=== PATIENT | female | born 1975 | race Caucasian/White ===

== ENCOUNTER 2017-09-16 12:38 | Emergency (ER) | payer OTHER ==
[2017-09-16] MEDS ORDERED: RX INFO: IV CONTRAST WAS GIVEN 1 EACH MISC MISCELLANE PRN (13:04)
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
[2017-09-16] MEDS: ONDANSETRON 4 MG/2 ML VIAL IVP STA ×2 (13:56→16:42)
[2017-09-16 14:06] LABS: Basophils # (A) 0.1 k/uL (0-0.2); Basophils % (A) 1 %; Eosinophils # (A) 0.2 k/uL (0-0.7); Eosinophils % (A) 2 %; HCT 42.1 % (34.0-46.0); HGB 14.3 gm/dL (11.4-16.0); Lymphocytes # (A) 1.9 k/uL (1.0-4.8); Lymphocytes % (A) 14 %; MCH 31.1 pg (25.0-35.0); MCHC 33.9 g/dL (31.0-37.0); MCV 91.8 fL (80.0-100.0); Monocytes # (A) 0.5 k/uL (0-1.0); Monocytes % (A) 3 %; Neutrophils # (A) 11.3 k/uL (1.3-7.7); Neutrophils % (A) 81 %; Platelet Count 372 k/uL (150-450); RBC 4.59 m/uL (3.80-5.40); RDW 12.7 % (11.5-15.5); WBC 14.1 k/uL (3.8-10.6)
[2017-09-16 14:16] LABS: ALT 31 U/L (9-52); AST 23 U/L (14-36); Albumin 3.9 g/dL (3.5-5.0); Alkaline Phosphatase 100 U/L (38-126); Anion Gap 12 mmol/L; Blood Urea Nitrogen 8 mg/dL (7-17); Calcium 9.4 mg/dL (8.4-10.2); Carbon Dioxide 24 mmol/L (22-30); Chloride 101 mmol/L (98-107); Glucose 126 mg/dL (74-99); Potassium 3.8 mmol/L (3.5-5.1); Sodium 137 mmol/L (137-145); Total Bilirubin 0.2 mg/dL (0.2-1.3); Total Protein 7.3 g/dL (6.3-8.2)
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
[2017-09-16] MEDS ORDERED: HYDROmorphone 1 MG/ML 1 ML SYRINGE IVP STA (15:37)
[2017-09-16] MEDS ORDERED: MORPHINE SULFATE 5 MG/ML SYRINGE IVP STA ×2 (15:41→16:42)
[2017-09-16] MEDS ORDERED: TOPICAL SKIN ADHESIVE 1 EACH AMP TOPICAL ONE (15:42)
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
[2017-09-16 16:17] LABS: Creatine Kinase 80 U/L (30-135)
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
[2017-09-16 16:25] VITALS: BP 117/56; PULSE 97; RESP 18
[2017-09-16 16:30] LABS: Creatine Kinase MB 0.3 ng/mL (0.0-2.4); Troponin I <0.012 ng/mL (0.000-0.034)
[2017-09-16 17:11] VITALS: TEMP 98.4
== END 2017-09-16 17:10 | disposition home or self-care (01) ==
LOC: EC 12:38
DX: S52.501A Unspecified fracture of the lower end of right radius, initial encounter for closed fracture (principal); S62.306A Unspecified fracture of fifth metacarpal bone, right hand, initial encounter for closed fracture; S61.412A Laceration without foreign body of left hand, initial encounter; S61.011A Laceration without foreign body of right thumb without damage to nail, initial encounter; S20.01XA Contusion of right breast, initial encounter; S60.511A Abrasion of right hand, initial encounter; M25.571 Pain in right ankle and joints of right foot; E07.9 Disorder of thyroid, unspecified; F17.200 Nicotine dependence, unspecified, uncomplicated; Z53.8 Procedure and treatment not carried out for other reasons; Z88.5 Allergy status to narcotic agent; Z79.84 Long term (current) use of oral hypoglycemic drugs; Z79.899 Other long term (current) drug therapy; V48.5XXA Car driver injured in noncollision transport accident in traffic accident, initial encounter; Y92.410 Unspecified street and highway as the place of occurrence of the external cause
CPT/HCPCS: 99285; 96374; 96376 ×2; 96375; 36415; 93005; 86900; 86901; 80053; 82550; 82553; 84484; 85025; 86850; 73130; 73080; 73110; 73610; 73630; 71260; 74177; J2405; Q9967; J2274

== ENCOUNTER → 2018-10-01 | Outpatient (CLI) | payer OTHER ==
--- NOTE | 2018-10-02 12:08 | MM ---
Reason for exam: clinical finding. Indicated problem(s): lump or thickening in the left breast. Physical Findings: Nurse Summary: Asymmetrec bilateral thickening, and four areas of palpable lesions on left breast. MG 3D Diag Mammo W/Cad DIANA Bilateral CC and MLO view(s) were taken. No prior studies available for comparison. There are scattered fibroglandular densities. There are 2 right masses at middle depth in the upper outer quadrant, possible fat necrosis. There are multiple benign oil cysts on the left breast. There are 5 groups of calcifications in the right upper outer quadrant, probably benign fat necrosis. Will be followed after right biopsy of a sonographic suspicious finding. These results were verbally communicated with the patient and result sheet given to the patient on 10/01/18. ASSESSMENT: Incomplete: need additional imaging evaluation, BI-RAD 0 RECOMMENDATION: Ultrasound of both breasts.
--- NOTE | 2018-10-02 12:21 | USB ---
Reason for exam: additional evaluation requested from prior study. Indicated problem(s): lump or thickening in the left breast. US Breast Limited BILAT Right limited breast ultrasound including focal area of concern, retroareolar and axilla demonstrates a 0.8 x 1.1 x 0.7 cm irregular shaped, with irregular margins, solid, hypoechoic lesion at 9 o'clock that will need a biopsy, possible neoplasm vs fat necrosis. A 1.7 x 0.9 x 0.7 cm posterior nipple ductal ectasia at 9 o'clock. Left complete breast ultrasound includes all four quadrants, the retroareolar region and axilla. Finding demonstrates a 0.5 x 0.5 x 0.5 cm oval well circumscribed cystic lesion at 1 o'clock, a 0.9 x 0.9 x 0.6 cm oval well circumscribed cystic lesion at 1 o'clock, and a 0.4 x 0.4 x 0.3 cm oval well circumscribed cystic lesion at 3 o'clock. These results were verbally communicated with the patient and result sheet given to the patient on 10/01/18. ASSESSMENT: Suspicious, BI-RAD 4 RECOMMENDATION: Ultrasound core biopsy of the right breast. Called Dr. Harrington with mammographic findings and has scheduled an appointment for the patient for 10/15/18 at 2:00pm with Dr. Reid. The ultrasound core biopsy of the right breast is scheduled for 10/19/18 at 12:20pm. PRELIMINARY REPORT CALLED AND FAXED TO DR. REID ON 10/01/18.
== END | disposition home or self-care (01) ==
LOC: RADMAMWWP 11:58
PROVIDERS: ATTEND Family Medicine
DX: N63.0 Unspecified lump in unspecified breast (principal)
CPT/HCPCS: 77066; 76642; G0279; 77062

== ENCOUNTER → 2018-10-15 | Outpatient (CLI) | payer OTHER ==
[2018-10-15 14:18] VITALS: BP 145/85; PULSE 84; RESP 18; TEMP 97.1; BMI 40.3
--- NOTE | 2018-10-15 14:35 | P.GSHP ---
History of Present Illness H&P Date: 10/15/18 Chief Complaint: abnormal mammogram Sheela is a 43-year-old white female who presents for a breast examination. She states over the past several months she has had some cystic changes in her left breast. She feels no dominant masses or nodules in either breast. She has no nipple discharge or skin changes of concern. Her mammogram was performed [id number]. This revealed 2 right masses at middle depth in the upper inner quadrant, possible fat necrosis. There were multiple benign oil cysts on the left breast. Additionally there were 5 groups of calcifications in the right upper outer quadrant possibly benign fat necrosis. An ultrasound was performed of the right and left breasts. In the right breast she was noted to have a 0.8. 7 x 1.1 cm irregular shaped lesion at 9:00 for which biopsy was recommended. A 1.7 x 0.9 cm posterior nipple duct ectasia at 9:00 was noted. No lesions of concern were noted in the left breast although there were some cystic lesions identified. The impression after the ultrasound was ultrasound core biopsy of the right breast. I have additionally reviewed the mammogram and ultrasound with Dr. Metz and his conclusion is that if the ultrasound core biopsy is not definitive then a needle local open excisional biopsy would be recommended. If it is definitive then the stereotactic core biopsy of several of the areas of microcalcification will be recommended. Family history: 1. Daughter: Glioblastoma/survivor 2. paternal grandparents: both lung cancer, (both smokers) 3. maternal grandfather: kidney 4. paternal uncle: kidney Hormonal history: Menarche: 8 Pregnancies: 3, 1 miscarriage 2 live births, first live at 20, patient did not breast-feed menopause: partial hysterectomy at 33 done for fibroids, left ovaries BCP: 1 year hormones: none Surgical history: 1. Cystectomy 2. Tonsillectomy 3. 3. Partial hysterectomy Past medical history: 1. Hypothyroidism Social history: Smoked: Half a pack per day Alcohol: Negative Drugs: Negative - Constitutional Constitutional: Denies chills, Denies fever - EENT Comment: migraine Eyes: denies blurred vision, denies pain Ears: deny: decreased hearing, tinnitus Ears, nose, mouth and throat: Reports headache, Denies sore throat - Breasts Breasts: bilateral: as per HPI - Cardiovascular Cardiovascular: Denies chest pain, Denies shortness of breath - Respiratory Comment: smoker Respiratory: Denies cough, Denies 7 - Gastrointestinal Comment: GERD Gastrointestinal: Reports abdominal pain, Reports diarrhea, Denies nausea, Denies vomiting - Genitourinary (Female) Genitourinary: Denies dysuria, Denies hematuria - Menstruation Menstruation: Reports post hysterectomy - Musculoskeletal Comment: arthritis in back Musculoskeletal: Denies myalgias - Integumentary Integumentary: Denies pruritus, Denies rash - Neurological Neurological: Denies numbness, Denies weakness - Psychiatric Psychiatric: Reports anxiety, Reports depression - Endocrine Endocrine: Reports weight change, Denies fatigue - Hematologic/Lymphatic Comment: motrin - Allergic/Immunologic Allergic/Immunologic: Reports seasonal allergies Past Medical History Past Medical History: Thyroid Disorder History of Any Multi-Drug Resistant Organisms: None Reported Past Surgical History: Cholecystectomy, Hysterectomy, Tonsillectomy Past Psychological History: No Psychological Hx Reported Smoking Status: Current every day smoker Past Alcohol Use History: None Reported Past Drug Use History: None Reported Medications and Allergies Home Medications Medication Instructions Recorded Confirmed Type Hydrocodone/Acetaminophen [[place] 1 each PO Q6HR PRN #20 tab 09/16/17 10/08/18 Rx 5-325] Ibuprofen [Motrin] 800 mg PO TID PRN 09/16/17 10/08/18 History Levothyroxine Sodium [Synthroid] 100 mcg PO DAILY 09/16/17 10/08/18 History Spironolactone 50 mg PO BID 09/16/17 10/08/18 History metFORMIN HCL ER [Glucophage Xr] 500 mg PO DAILY 09/16/17 10/08/18 History Cholecalciferol (Vitamin D3) 5,000 unit PO DAILY 10/08/18 10/08/18 History [Vitamin D3] DULoxetine HCL [Cymbalta] 30 mg PO BID 10/08/18 10/08/18 History Allergies Allergy/AdvReac Type Severity Reaction Status Date / Time hydromorphone [From Dilaudid] Allergy Unknown Verified 10/15/18 14:12 Surgical - Exam - General obese - Eyes normal ocular movement - ENT normal pinna, normal nares, no hearing loss - Neck no masses, trachea midline - Respiratory normal respiratory effort, clear to auscultation - Cardiovascular Rhythm: regular Heart Sounds: normal: S1, S2 - Abdomen Abdomen: soft, non tender, no guarding, no rigid, no rebound - Integumentary normal turgor - Neurologic no disoriented, no combative - Musculoskeletal normal gait, normal posture - Psychiatric oriented to time, oriented to person, oriented to place, speech is normal, memory intact breast exam: Right breast: Multi-positional exam fibrocystic changes no discrete dominant mass or nodule of concern Right axilla: No adenopathy of concern Left breast: Multi-positional exam reveals a cystic lesion at the 11:30 position which is somewhat firm, periareolar increased nodularity, no discrete 1 :00 nodularity appreciated Left axilla: No adenopathy of concern Results Mammogram and ultrasound were reviewed with Dr. Bartholomew the patient has several areas of microcalcification in the right breast which are distinct from the lesion noted on ultrasound therefore ultrasound core biopsy recommended and depending on results of this further recommendation will be made as to the microcalcifications Assessment and Plan Assessment: Impression: 1. Fibrocystic breast disease bilateral with palpable abnormality noted in the left breast 2. Radiographic abnormality right breast on ultrasound and mammogram 3. Hypothyroidism 4. Back pain 5. Anxiety/depression Plan: 1. Attempt at cyst aspiration of area of concern in the left breast at 11:30 if this does not resolve would recommend resection in the operating room 2. Ultrasound core biopsy area of concern in the right breast if this is benign radiologist has recommended that this would consider discordant and needle local excision in the operating room to be considered 3. Areas of microcalcification in the right breast which will need stereo biopsy depending on results of core biopsy of the lesion noted in the right breast 4. Medical management of medical conditions Risk and benefits of procedures discussed with the patient. She is understanding and the ultrasound core biopsy of the right breast as well as an attempted aspiration of the lesion of the left breast will be performed in the near future. Risks include leading infection reaction to the anesthetic possibility of need to go for operative resection depending on results of the biopsies. The patient understands and wishes to proceed. CC: Dr. Colton Gore
--- NOTE | 2018-10-15 14:39 | P.OP ---
Date of Procedure: 10/15/18 Preoperative Diagnosis: nodule left breast at 11:30 Postoperative Diagnosis: same Surgeon: Sunni Milner Pathology: other (Cytology from lesion 11:30 position left breast) Condition: stable Disposition: same day Indications for Procedure: Prominent palpable lesion left breast 11:30 position Description of Procedure: The area of the left breast was prepped using alcohol. A 22-gauge needle on it and cc syringe was passed into the area of concern. The lesion did not resolve in side to logic fluid was not obtained. Therefore the lesion was passed back and forth several times to obtain a tissue sample. The tissue sample was sent to pathology. The patient tolerated the procedure in stable condition. Specimen was sent to pathology patient will follow up here for results. cc: Dr. Harrington
== END | disposition home or self-care (01) ==
LOC: WWCWWP 13:54
PROVIDERS: ATTEND Surgery
DX: N61.0 Mastitis without abscess (principal); N60.02 Solitary cyst of left breast
CPT/HCPCS: 88173

== ENCOUNTER → 2018-11-19 | Outpatient (CLI) | payer OTHER ==
[2018-11-19 10:41] VITALS: BP 109/72; PULSE 81; RESP 18; TEMP 98; BMI 39.5
--- NOTE | 2018-11-19 10:54 | P.PN ---
Subjective Progress Note Date: 11/19/18 Principal diagnosis: abnormal mammogram and ultrasound Sheela is a 43-year-old white female who was initially seen in September 2018. She had had radiographic abnormalities noted in the right breast. In the right breast she was noted to have 5 groups of calcification in the upper outer quadrant felt to be possibly benign fat necrosis. However an ultrasound of the right breast revealed 8.8 x 1.1 cm irregular shaped lesion at 9:00 for which biopsy was recommended. Additionally 1.7 x 9 cm posterior nipple duct ectasia was noted. No lesions of concern were noted in the left breast although there were some cystic lesions identified. Her case was reviewed with radiology and the plan was an ultrasound core biopsy of the area of greatest concern in the right breast. If this area was not distended of the needle localization and open excisional biopsy was recommended. If it was definitive been stereotactic core biopsy of several of the areas of microcalcification were recommended. Unfortunately the patient is had some family emergencies and unable to have her ultrasound core biopsy at this time. The patient was seen last time I did do an aspiration of an area of the left breast and pathology for this was mixed inflammatory cells a solid lesion was not identified cytologically. The patient states that since her last visit in the left breast she has increased tenderness in the lower area of the breast with increased erythema. The patient has had no fever or chills. The patient has had no trauma to the breast. The patient has not had any increased caffeine intake. The patient does smoke. The patient has not had increased chocolate intake recently. Family History: 1. daughter: glioblastoma 2. Paternal grandparents: Both lung cancer 3. Maternal grandfather: Kidney cancer 4. Paternal uncle: Kidney cancer Objective - Vital Signs Vital signs: Intake & Output 11/18/18 11/19/18 11/19/18 18:59 06:59 18:59 Weight 111.13 kg - Constitutional General appearance: Present: obese - EENT Eyes: Present: EOMI ENT: Present: hearing grossly normal - Neck Neck: Present: normal ROM - Respiratory Respiratory: bilateral: CTA - Cardiovascular Rhythm: regular Heart sounds: normal: S1, S2 - Gastrointestinal General gastrointestinal: Present: soft - Integumentary Integumentary: Present: normal turgor - Psychiatric Psychiatric: Present: A&O x's 3, appropriate affect, intact judgment & insight - Additional findings Additional findings: Breast examination: Right breast: Multiple positional exam no dominant masses or nodules of concern Right axilla no adenopathy of concern Left breast: Mild erythema in the lateral and inferior aspect of the breast, multiple positional exam discreet firm nodular area at approximately 11:30 which is persistent despite the FNA of this area; on today's examination there is mild inversion of the left nipple with respect to the right nipple Left axilla: No adenopathy of concern Assessment and Plan Assessment: Impression: 1. Radiographic abnormality right breast 2. Erythema/mild cellulitic changes of left breast 3. Dense nodule left breast FNA consistent with inflammation 4. Family history of cancer 5. Hypothyroidism 6. Mastodynia 7. Mild inversion of the left nipple Plan: 1. Ultrasound-guided core biopsy right breast 2. Depending on ultrasound for biopsy results to proceed with definitive resection of the right side in the operating room for proceed to stereotactic core biopsy several areas of microcalcification in the right breast 3. Left breast excisional biopsy of firm palpable area in which FNA was nondiagnostic 4. Keflex for mild cellulitis 5. Follow-up after ultrasound core biopsy of the right breast CC: Dr. Harrington
== END ==
LOC: WWCWWP 10:26
PROVIDERS: ATTEND Surgery
DX: Z53.9 Procedure and treatment not carried out, unspecified reason (principal)

== ENCOUNTER → 2018-11-29 | Day surgery (SDC) | payer OTHER ==
[2018-11-29 07:44] VITALS: RESP 16; BMI 40.3
--- NOTE | 2018-11-29 08:55 | USB ---
EXAMINATION TYPE: US biopsy breast VAD RT, MG diagnostic mammo RT wo CAD DATE OF EXAM: 11/29/2018 CLINICAL HISTORY: R92.8 ABNORMAL MAMMOGRAM. Abnormal ultrasound. TECHNIQUE: Ultrasound guided core biopsy of right breast with clip placement and follow-up diagnostic two-view mammogram. COMPARISON: Bilateral breast ultrasound and 3-D mammogram October 01, 2018 FINDINGS: The procedure of ultrasound guided core biopsy was explained to the patient. Benefits, alternatives, and risks were discussed. An informed consent was then obtained. The patient was placed in supine positioning for imaging and for the procedure. Preprocedure ultrasound redemonstrates at 9:00 level zone A, a vague irregular 7 mm area with shadowing. The overlying skin was prepped and draped in usual sterile fashion. Lidocaine buffered with bicarbonate was used as anesthetic into the skin and subcutaneous tissue. Lidocaine with epinephrine is used as anesthetic into the deeper tissue in the right breast. Under ultrasound guidance, a 12-gauge vacuum assisted biopsy gun device was used to obtain 3 core samples. Following this, a biopsy clip was left in lesion. The patient tolerated the procedure well without any immediate complication. The patient was kept in the radiology department for short stay after the procedure and then discharged home in stable condition. Postprocedure mammogram shows successful deployment of clip near more anterior group of calcifications outer aspect. IMPRESSION: Successful, uncomplicated ultrasound guided core biopsy of area of concern in the right breast, full pathology results to follow. Intermediate index of suspicion noted at time of procedure. (Neoplasm vs fatty necrosis - patient had history of trauma with bruising near this level in the last year) Pathology Results: Benign RIGHT BREAST LESION, NEEDLE CORE BIOPSIES: Consistent with fat necrosis/remote trauma (hemosiderin laden macrophages, fibrosis, giant cell reaction to non- cellular amorphous debris). Recommendation Follow up mammogram and ultrasound of the right breast in 6 months. MTDD
[2018-11-29 09:15] VITALS: BP 147/86; PULSE 71; TEMP 98.1
== END ==
LOC: RADUSWWP 06:50
PROVIDERS: ATTEND Surgery
DX: N60.31 Fibrosclerosis of right breast (principal)
CPT/HCPCS: 88305; 77065; 19083; A4648; J2001

== ENCOUNTER → 2018-12-23 | Outpatient (CLI) | payer OTHER ==
[2018-12-23 14:54] VITALS: BP 147/83; PULSE 78; RESP 16; TEMP 98.2; BMI 40.3
--- NOTE | 2018-12-23 15:38 | P.GSHP ---
History of Present Illness H&P Date: 12/23/18 Chief Complaint: Bilateral breast changes Sheela is a 43-year-old white female who initially presented secondary to an abnormal mammogram. The patient was noted to have an area of concern in the right breast which was 7 x 1.1 cm and irregular in shape for which ultrasound-g uided core biopsy was recommended. This was performed and the pathology was consistent with fat necrosis. Additionally the patient had some areas of microcalcification in the right breast which were biopsied and also considered to be benign and consistent with fat necrosis. The patient did have a history of trauma to the breast and had had some ecchymosis in these regions. She did not feel anything palpable in the area of radiographic abnormality. In the left breast no biopsy was recommended however on physical exam she had an area in the approximately 8 o'clock position which was very firm and a fine-needle aspiration was performed. Fine-needle aspiration revealed inflammatory cells consistent with a cyst but there was no resolution of the lesion. The patient wishes to have the palpable change in her left breast removed. We believe that this is most likely benign but it is firm and does not resolve with aspiration. It was not specifically seen on ultrasound. Family history: 1. Daughter: Glioblastoma/survivor 2 paternal grandparents: Both lung cancer both smokers 3. Paternal grandfather: Kidney cancer 4. Paternal uncle: Kidney cancer Medical history: Menarche: 8 Pregnancies: 3, 1 miscarriage, 2 live births, first live at 20, patient did not breast-feed Menopause: Partial hysterectomy at 33 done for fibroids ovaries were not removed control pills: 1 year Hormones: Negative Surgical history: 1. Tubal ligation 2. Cholecystectomy 3. Partial hysterectomy Past medical history: 1. Hypothyroidism Social history: Smoked: Half pack per day Alcohol: Negative Drugs: Negative - Constitutional Comment: BMI 40.4 Constitutional: Denies chills, Denies fever - EENT Eyes: bilateral blurred vision, denies pain Ears: deny: decreased hearing, tinnitus Ears, nose, mouth and throat: Reports headache, Denies sore throat - Breasts Breasts: bilateral: as per HPI - Cardiovascular Cardiovascular: Denies chest pain, Denies shortness of breath - Respiratory Comment: smoker Respiratory: Denies cough, Denies 7 - Gastrointestinal Gastrointestinal: Denies abdominal pain, Denies diarrhea, Denies nausea, Denies vomiting - Genitourinary (Female) Genitourinary: Denies dysuria, Denies hematuria - Menstruation Menstruation: Reports post hysterectomy - Musculoskeletal Comment: back pain - Integumentary Integumentary: Denies pruritus, Denies rash - Neurological Neurological: Denies numbness, Denies weakness - Psychiatric Psychiatric: Reports anxiety, Reports depression - Endocrine Endocrine: Denies fatigue, Denies weight change - Hematologic/Lymphatic Comment: none - Allergic/Immunologic Allergic/Immunologic: Reports seasonal allergies Past Medical History Past Medical History: Thyroid Disorder Additional Past Medical History / Comment(s): hormonal imbalance. chronic back pain/bulging discs History of Any Multi-Drug Resistant Organisms: None Reported Past Surgical History: Cholecystectomy, Hysterectomy, Tonsillectomy Past Anesthesia/Blood Transfusion Reactions: No Reported Reaction Past Psychological History: No Psychological Hx Reported Smoking Status: Current every day smoker Past Alcohol Use History: None Reported Past Drug Use History: None Reported Medications and Allergies Home Medications Medication Instructions Recorded Confirmed Type Hydrocodone/Acetaminophen [[place] 1 each PO Q6HR PRN #20 tab 09/16/17 12/23/18 Rx 5-325] Ibuprofen [Motrin] 800 mg PO TID PRN 09/16/17 12/23/18 History Levothyroxine Sodium [Synthroid] 100 mcg PO QAM 09/16/17 12/23/18 History Spironolactone 50 mg PO BID 09/16/17 12/23/18 History metFORMIN HCL ER [Glucophage Xr] 500 mg PO QAM 09/16/17 12/23/18 History Cholecalciferol (Vitamin D3) 5,000 unit PO DAILY 10/08/18 12/23/18 History [Vitamin D3] ALPRAZolam [Xanax] 0.5 mg PO DAILY PRN 12/23/18 12/23/18 History buPROPion XL [Wellbutrin Xl] 150 mg PO DAILY 12/23/18 12/23/18 History Allergies Allergy/AdvReac Type Severity Reaction Status Date / Time hydromorphone [From Dilaudid] Allergy Unknown Verified 12/23/18 14:50 Surgical - Exam Vital Signs Temp Pulse Resp BP Pulse Ox 98.2 F 78 16 147/83 99 12/23/18 14:51 12/23/18 14:51 12/23/18 14:51 12/23/18 14:51 12/23/18 14:51 BMI 40.4 - General obese - Eyes normal ocular movement - ENT no hearing loss, no congestion - Neck no masses, trachea midline - Respiratory normal respiratory effort, clear to auscultation - Cardiovascular Rhythm: regular Heart Sounds: normal: S1, S2 - Abdomen Abdomen: soft - Integumentary normal turgor - Neurologic no disoriented, no combative - Musculoskeletal normal gait, normal posture - Psychiatric oriented to time, oriented to person, oriented to place, speech is normal, memory intact Breast examination: Right breast: Multi-positional exam no dominant masses or nodules of concern There punctures sites visible from where she had her core biopsies no evidence of any infection Right axilla: No adenopathy of concern Left breast: Multi-positional exam firm nodular area at approximately 9 o'clock position with a second area just proximal to this this has been biopsied and was benign but is persistent in the area Left axilla: No adenopathy of concern Results Mammogram and ultrasound results reviewed Assessment and Plan Assessment: Impression: 1. Palpable abnormality left breast/FNA inflammatory in nature 2. Radiographic abnormality right breast stereo an ultrasound core biopsies benign consistent with fat necrosis 3. Fibrocystic breast changes 4. Family history of cancer 5. back pain 6. hypothyroid Plan 1. Surgical excision of palpable abnormality left breast 2. Repeat right breast mammogram and ultrasound in 6 months 3. Medical management of medical conditions Risks and benefits of procedures have been discussed with the patient and she wishes to proceed. CC: Dr. Harrington
== END ==
LOC: WWCWWP 14:41
PROVIDERS: ATTEND Surgery
DX: Z53.9 Procedure and treatment not carried out, unspecified reason (principal)

== ENCOUNTER 2018-12-28 11:20 | Day surgery (SDC) | payer OTHER ==
[2018-12-24 11:08] VITALS: BMI 40.3
[~2018-12-28 11:20] MED LIST: HEPARIN SODIUM,PORCINE 5,000 UNIT/ML 1 ML VIAL SQ ONE; LACTATED RINGERS 1,000 ML IV SCH; ceFAZolin IN SWFI 2 GM/20 ML SYRINGE IVP ONE
[2018-12-28 11:56] VITALS: TEMP 97.6
[2018-12-28] MEDS ORDERED: DEXAMETHASONE SOD PHOSPHATE 10 MG/ML 1 ML VIAL IV ONE (12:08)
[2018-12-28] MEDS ORDERED: ONDANSETRON 4 MG/2 ML VIAL IVP ONE (12:08)
[2018-12-28 12:10] LABS: Glucose,Whole Blood 131 mg/dL (75-99)
[2018-12-28 12:32] LABS: Basophils # (A) 0.1 k/uL (0-0.2); Basophils % (A) 1 %; Eosinophils # (A) 0.4 k/uL (0-0.7); Eosinophils % (A) 4 %; HCT 40.9 % (34.0-46.0); HGB 13.3 gm/dL (11.4-16.0); Lymphocytes % (A) 21 %; MCH 29.2 pg (25.0-35.0); MCHC 32.5 g/dL (31.0-37.0); MCV 89.9 fL (80.0-100.0); Mean Platelet Volume 6.8; Monocytes # (A) 0.3 k/uL (0-1.0); Monocytes % (A) 4 %; Neutrophils # (A) 6.5 k/uL (1.3-7.7); Neutrophils % (A) 70 %; Platelet Count 337 k/uL (150-450); RBC 4.55 m/uL (3.80-5.40); RDW 12.7 % (11.5-15.5); WBC 9.3 k/uL (3.8-10.6)
[2018-12-28] MEDS ORDERED: HEPARIN SODIUM,PORCINE 5,000 UNIT/ML 1 ML VIAL SQ ONE (15:08)
[2018-12-28] MEDS ORDERED: fentaNYL (PF) 50 MCG/ML 2 ML AMP ONE (15:29)
[2018-12-28] MEDS ORDERED: MIDAZOLAM 2 MG/2 ML VIAL ONE (15:29)
[2018-12-28] MEDS ORDERED: PROPOFOL 10 MG/ML 20 ML VIAL IV ONE (15:29)
[2018-12-28] MEDS ORDERED: LIDOCAINE 1% INJ 10MG/ML (20 ML MDV) ONE (15:29)
[2018-12-28] MEDS ORDERED: LIDOCAINE 1% INJ 10MG/ML (20 ML MDV) SQ ONE ×2 (15:48)
--- NOTE | 2018-12-28 16:34 | P.OP ---
Date of Procedure: 12/28/18 Preoperative Diagnosis: Palpable abnormality left breast 2, FNA nondiagnostic Postoperative Diagnosis: Same Procedure(s) Performed: Excisional biopsy 2 areas in the left breast utilizing a partial round bolck procedure Anesthesia: MAC Surgeon: Sunni Milner Estimated Blood Loss (ml): 5 IV fluids (ml): 600 Pathology: other (Breast tissue) Condition: stable Disposition: PACU Indications for Procedure: Palpable abnormality left breast, FNA nondiagnostic Operative Findings: 2 nodules in the left breast Description of Procedure: The patient was taken to the operating room and following sedation the left breast was prepped and draped in a sterile fashion. A circumareolar incision was made and approximately 1 cm away from this a second incision was made. The skin was de-epithelialized in this area. Near the second incision further away from the areola full-thickness incision was carried into the area of the subcutaneous and breast tissue. A superior flap was developed to surround the 2 palpable areas in the upper inner quadrant of the right breast. These were grasped using an Allis and carefully dissected free. After we were assured that hemostasis was attained the wound was well irrigated. Titanium clips were then placed. The subcutaneous tissue was closed using a 3-0 Prolene suture. This was followed by closure of the skin with 4-0 Monocryl. The specimen was painted for orientation. All instrument and sponge counts were correct at the end of the case. The patient tolerated the procedure in stable condition.
--- NOTE | 2018-12-28 16:36 | P.DS ---
Providers Attending physician: Sunni Milner Primary care physician: Colton Harrington Plan - Discharge Summary Discharge Rx Participant: No New Discharge Prescriptions: No Action metFORMIN HCL ER [Glucophage Xr] 500 mg PO HS Spironolactone 50 mg PO BID Levothyroxine Sodium [Synthroid] 100 mcg PO HS Ibuprofen [Motrin] 800 mg PO TID PRN PRN Reason: Pain Hydrocodone/Acetaminophen [[place] 5-325] 1 each PO Q6HR PRN #20 tab PRN Reason: Pain Cholecalciferol (Vitamin D3) [Vitamin D3] 5,000 unit PO HS buPROPion XL [Wellbutrin Xl] 150 mg PO BID ALPRAZolam [Xanax] 0.5 mg PO DAILY PRN PRN Reason: Agitation Or Acute Anxiety Discharge Medication List Hydrocodone/Acetaminophen [[place] 5-325] 1 each PO Q6HR PRN #20 tab 09/16/17 [Rx] Ibuprofen [Motrin] 800 mg PO TID PRN 09/16/17 [History] Levothyroxine Sodium [Synthroid] 100 mcg PO HS 09/16/17 [History] Spironolactone 50 mg PO BID 09/16/17 [History] metFORMIN HCL ER [Glucophage Xr] 500 mg PO HS 09/16/17 [History] Cholecalciferol (Vitamin D3) [Vitamin D3] 5,000 unit PO HS 10/08/18 [History] ALPRAZolam [Xanax] 0.5 mg PO DAILY PRN 12/23/18 [History] buPROPion XL [Wellbutrin Xl] 150 mg PO BID 12/23/18 [History] Follow up Appointment(s)/Referral(s): Sunni Milner MD [STAFF PHYSICIAN] - 1 Week Activity/Diet/Wound Care/Special Instructions: Do not drive today Do not drive if taking narcotic pain medication Patient may shower after 48 hours Patient to wear bra at all times Discharge Disposition: HOME SELF-CARE
[2018-12-28] MEDS ORDERED: fentaNYL (PF) 50 MCG/ML 2 ML AMP IVP ONE ×2 (16:43→16:55)
[2018-12-28] MEDS ORDERED: LACTATED RINGERS 1,000 ML IV ONE (17:14)
[2018-12-28 17:23] VITALS: RESP 18
[2018-12-28] MEDS ORDERED: HYDROcodone/APAP 5-325MG 1 EACH TAB PO ONE (17:31)
[2018-12-28 17:54] VITALS: BP 106/57; PULSE 72
== END 2018-12-28 18:05 | disposition home or self-care (01) ==
LOC: OR 11:20
PROVIDERS: ATTEND Surgery
DX: N64.1 Fat necrosis of breast (principal); N60.12 Diffuse cystic mastopathy of left breast; N63.20 Unspecified lump in the left breast, unspecified quadrant; E07.9 Disorder of thyroid, unspecified; F17.210 Nicotine dependence, cigarettes, uncomplicated; E34.9 Endocrine disorder, unspecified; K21.9 Gastro-esophageal reflux disease without esophagitis; G89.29 Other chronic pain; M54.9 Dorsalgia, unspecified; Z79.84 Long term (current) use of oral hypoglycemic drugs; Z79.890 Hormone replacement therapy; Z79.899 Other long term (current) drug therapy; Z88.5 Allergy status to narcotic agent
CPT/HCPCS: 88305; 85025; 88307; 19120; J2250; J1644; J1100; J2405; J2001; J3010; J2704; J0690

== ENCOUNTER → 2019-01-06 | Outpatient (CLI) | payer OTHER ==
[2019-01-06 10:35] VITALS: BP 117/80; PULSE 72; RESP 16; TEMP 97.8; BMI 40.3
--- NOTE | 2019-01-06 10:52 | P.PN ---
Progress Note - Text Progress Note Date: 01/06/19 Sheela status post left breast open biopsy. Pathology revealed benign fat necrosis. The patient is doing well at this time without complaints. Physical exam: Lungs: Clear Heart: Regular rate and rhythm Incision left breast clean and dry Impression: 1.Left breast biopsy benign 2. Stereotactic core biopsy right breast benign Plan: 1. Repeat bilateral mammogram in 6 months for physician exam at that time CC: DR. Harrington
== END | disposition home or self-care (01) ==
LOC: WWCWWP 10:22
PROVIDERS: ATTEND Surgery
DX: Z53.9 Procedure and treatment not carried out, unspecified reason (principal)

== ENCOUNTER → 2019-07-04 | Outpatient (CLI) | payer OTHER ==
--- NOTE | 2019-07-05 08:24 | MM ---
Reason for exam: follow-up at short interval from prior study. Last mammogram was performed 7 months ago. History: Benign excisional biopsy of the left breast, December 2018. Benign MG stereo VAD BX addl RT of the right breast, December 10, 2018. Benign MG stereo VAD BX RT of the right breast, December 10, 2018. Benign US biopsy breast VAD RT of the right breast, November 29, 2018. Physical Findings: Nurse Summary: 1cm nodule in the right breast at 3 o'clock (nurse mj). MG 3D Diag Mammo W/Cad DIANA Bilateral CC, MLO, XCCL, CC with magnification, and ML with magnification view(s) were taken. Prior study comparison: November 29, 2018, right breast MG diagnostic mammo RT wo CAD. October 01, 2018, bilateral MG 3d diag mammo w/cad DIANA. The breast tissue is heterogeneously dense. This may lower the sensitivity of mammography. There are multiple new groups of calcifications bilaterally. The most dominant in the right upper outer quadrant at posterior depth, right upper outer quadrant at middle depth, left upper outer quadrant at posterior depth and left upper outer quadrant at middle depth. Bilateral stereotactic core biopsy recommended for bilateral middle group calcifications. History of trauma, possible multifocal fat necrosis. Post surgical change on the left. These results were verbally communicated with the patient and result sheet given to the patient on 07/04/19. ASSESSMENT: Incomplete: need additional imaging evaluation, BI-RAD 0 RECOMMENDATION: Ultrasound of the right breast.
--- NOTE | 2019-07-05 08:25 | USB ---
Reason for exam: additional evaluation requested from abnormal screening. History: Benign excisional biopsy of the left breast, December 2018. Benign MG stereo VAD BX addl RT of the right breast, December 10, 2018. Benign MG stereo VAD BX RT of the right breast, December 10, 2018. Benign US biopsy breast VAD RT of the right breast, November 29, 2018. US Breast Limited RT Right limited breast ultrasound including focal area of concern, retroareolar and axilla demonstrates no cystic or solid lesion seen. No sonographic correlate for palpable. These results were verbally communicated with the patient and result sheet given to the patient on 07/04/19. ASSESSMENT: Suspicious, BI-RAD 4 RECOMMENDATION: Stereotactic core biopsy of the right breast. (x 2) Called office with mammographic findings and has scheduled an appointment for the patient for 07/07/19 at 9:[address] Milner. PRELIMINARY REPORT CALLED AND FAXED TO DR. MILNER ON 07/05/19.
== END ==
LOC: RADMAMWWP 13:04
PROVIDERS: ATTEND Surgery
DX: R92.8 Other abnormal and inconclusive findings on diagnostic imaging of breast (principal)
CPT/HCPCS: 77066; 76642; G0279; 77062

== ENCOUNTER → 2019-07-07 | Outpatient (CLI) | payer OTHER ==
[2019-07-07 09:46] VITALS: BP 153/93; PULSE 75; RESP 18; TEMP 97.6; BMI 35.0
--- NOTE | 2019-07-07 10:27 | P.PN ---
Subjective Progress Note Date: 07/07/19 Sheela is a 43-year-old white female who initially presented secondary to an abnormal mammogram. The patient was noted to have an area of concern in the right breast which was 7 x 1.1 cm and irregular in shape for which ultrasound- guided core biopsy was recommended. This was performed and the pathology was consistent with fat necrosis. Additionally the patient had some areas of microcalcification in the right breast which were biopsied and also considered to be benign and consistent with fat necrosis. The patient did have a history of trauma to the breast and had had some ecchymosis in these regions. She did not feel anything palpable in the area of radiographic abnormality. In the left breast no biopsy was recommended however on physical exam she had an area in the approximately 8 o'clock position which was very firm and a fine-needle aspiration was performed. Fine-needle aspiration revealed inflammatory cells consistent with a cyst but there was no resolution of the lesion. The patient wishes to have the palpable change in her left breast removed. We believe that this is most likely benign but it is firm and does not resolve with aspiration. It was not specifically seen on ultrasound. The left breast lesion was removed on 12-28-18 which was consistent with fat necrosis. She had two sites in the right breast for which she had stero core biopsy on 12-10-18 which were benign. She had a bilateral mammogram [id number] for 6 month follow-up from her bilateral breast procedures. There were multiple groups of calcifications bilaterally. Most dominant in the right upper outer quadrant a posterior depth and right upper outer quadrant at middle depth left upper outer quadrant a posterior depth and left upper outer quadrant at middle depth. Bilateral stereotactic core biopsies were recommended for bilateral middle group calcifications which were felt to be new. The patient additionally had an ultrasound of the right breast which did not reveal any cystic or solid lesion. The patient states she does not feel any masses in her breast. The patient has not noted anything that she is concerned about. Sheela has recently lost 35 pounds. Family history: 1. Daughter: Glioblastoma/survivor 2. paternal grandparents: Both lung cancer both smokers 3. Paternal grandfather: Kidney cancer 4. Paternal uncle: Kidney cancer Medical history: Menarche: 8 Pregnancies: 3, 1 miscarriage, 2 live births, first live at 20, patient did not breast-feed Menopause: Partial hysterectomy at 33 done for fibroids ovaries were not removed control pills: 1 year Hormones: Negative Surgical history: 1. Tubal ligation 2. Cholecystectomy 3. Partial hysterectomy Past medical history: 1. Hypothyroidism 2. per-diabetic, lost 35 pounds Social history: Smoked: Half pack per day Alcohol: Negative Drugs: Negative - Constitutional Comment: BMI 35 Constitutional: Denies chills, Denies fever - EENT Eyes: bilateral blurred vision, denies pain Ears: deny: decreased hearing, tinnitus Ears, nose, mouth and throat: Reports headache, Denies sore throat - Breasts Breasts: bilateral: as per HPI - Cardiovascular Cardiovascular: Denies chest pain, Denies shortness of breath - Respiratory Comment: smoker Respiratory: Denies cough, Denies 7 - Gastrointestinal Gastrointestinal: Denies abdominal pain, Denies diarrhea, Denies nausea, Denies vomiting - Genitourinary (Female) Genitourinary: Denies dysuria, Denies hematuria - Menstruation Menstruation: Reports post hysterectomy - Musculoskeletal Comment: back pain - Integumentary Integumentary: Denies pruritus, Denies rash - Neurological Neurological: Denies numbness, Denies weakness - Psychiatric Psychiatric: Reports anxiety, Reports depression - Endocrine Endocrine: Denies fatigue, Denies weight change - Hematologic/Lymphatic Comment: none - Allergic/Immunologic Allergic/Immunologic: Reports seasonal allergies Past Medical History Past Medical History: Thyroid Disorder Additional Past Medical History / Comment(s): hormonal imbalance. chronic back pain/bulging discs History of Any Multi-Drug Resistant Organisms: None Reported Past Surgical History: Cholecystectomy, Hysterectomy, Tonsillectomy Past Anesthesia/Blood Transfusion Reactions: No Reported Reaction Past Psychological History: No Psychological Hx Reported Smoking Status: Current every day smoker Past Alcohol Use History: None Reported Past Drug Use History: None Reported Objective - Vital Signs Vital signs: Vital Signs Temp 97.6 F 07/07/19 09:41 Pulse 75 07/07/19 09:41 Resp 18 07/07/19 09:41 BP 153/93 07/07/19 09:41 Pulse Ox 96 07/07/19 09:41 Intake & Output 07/06/19 07/07/19 07/07/19 18:59 06:59 18:59 Weight 98.43 kg - Exam BMI 35 - Constitutional General appearance: Present: obese - EENT Eyes: Present: EOMI ENT: Present: hearing grossly normal - Neck Neck: Present: normal ROM - Respiratory Respiratory: bilateral: CTA - Cardiovascular Rhythm: regular Heart sounds: normal: S1, S2 - Gastrointestinal General gastrointestinal: Present: soft - Integumentary Integumentary: Present: normal turgor - Musculoskeletal Musculoskeletal: Present: gait normal - Psychiatric Psychiatric: Present: A&O x's 3, appropriate affect - Additional findings Additional findings: breast exam: BRA 38C right breast: Multi-positional exam no dominant masses or nodules of concern, fibrocystic changes, grade 3 ptosis Right axilla: No adenopathy of concern Left breast: Well-healed scar from prior biopsy, multiple positional exam no dominant mass or nodules of concern grade 1/2 ptosis Left axilla: No adenopathy of concern Right breast is larger than the left breast by approximately 1/4 size The patient at times has difficulty with buying clothes and feeling comfortable and wearing her clothes secondary to the discrepancy in the size of the breast and the ptosis on one side relative to the other. Assessment and Plan Assessment: Impression: 1. Fibrocystic breast changes 2. Mammographic abnormality 3. Fat necrosis of the breast 4. Asymmetry of the breasts 5. Family history of cancer 6. Hypothyroidism 7. Prediabetic 8. nicotine dependnce 9. BMI 35 Plan: 1. Bilateral stereotactic core biopsy 2. Probable symmetry procedure following stereotactic core biopsy 3. Medical management of medical conditions 4. Continue to lose weight 5. Encourage patient to stop tobacco use Risks and benefits of stereotactic core biopsy are discussed with the patient and she wishes to proceed. This will be scheduled in the near future. After the results of this come back depending on the results she may opt for a symmetry procedure on the right breast. Cc: Dr. Harrington
== END ==
LOC: WWCWWP 09:16
PROVIDERS: ATTEND Surgery
DX: Z53.9 Procedure and treatment not carried out, unspecified reason (principal)

== ENCOUNTER → 2019-08-26 | Day surgery (SDC) | payer OTHER ==
[2019-08-26 07:31] VITALS: RESP 16
--- NOTE | 2019-08-26 09:56 | P.PCN ---
Date of Procedure: 08/26/19 Preoperative Diagnosis: Abnormal microcalcifications bilateral breast Postoperative Diagnosis: same Procedure(s) Performed: Bilateral stereotactic core biopsy Anesthesia: local Surgeon: Sunni Milner Estimated Blood Loss (ml): 3 Pathology: other (Bilateral breast tissue) Condition: stable Disposition: same day Indications for Procedure: Abnormal bilateral breast microcalcifications Operative Findings: Radiographic specimens from both breasts revealed microcalcifications Description of Procedure: The patient is a 44-year-old white female who had bilateral mammogram performed. She was noted to have microcalcifications of concern in both breasts. Stereotactic core biopsy was recommended for both breasts. The risks and benefits of the procedure were discussed with the patient and she wished to proceed. The patient was brought to the [facility] directed core biopsy room. She was positioned on the stereotactic table. A case management associate film of the right breast was obtained. CC from above approach was utilized. The area of concern was identified. This was targeted. The breast was prepped using Betadine. 20 mL of 1% lidocaine was used to anesthetize the area of concern. The needle which was a 9-gauge vacuum-assisted core rotating biopsy needle was driven to the correct coordinates. The needle was fired. Post fire film revealed the needle to be in the correct location. Multiple core biopsies were obtained. Radiograph of the specimen revealed the area of concern had been removed. A secure natasha Top-Hat marking clip was placed. This was confirmed to be in the correct location. The left breast was then approached. The patient was repositioned. A CC from below approach was utilized. A case management associate film was obtained. The area of concern was identified and this was targeted. The breast was prepped using Betadine. 20 mL of 1% lidocaine were used to anesthetize the area of concern. A 9-gauge vacuum-assisted core rotating biopsy needle was driven to the correct coordinates. The needle was fired and post-fire films were obtained. This appeared to be in the correct location. Biopsies were obtained from the 12 to 6 o'clock position going through the 9 o'clock position and avoiding the 3 o'clock position. The area of biopsy was lavaged. Radiograph of the specimen revealed microcalcifications to be present. This appeared to be territory service representative of the area of concern. A secure natasha Top-Hat marking clip was placed. The patient tolerated procedure in stable condition. Specimens are sent to pathology. The patient will follow-up Dr. Pena next week.
[2019-08-26 10:14] VITALS: BP 137/85; PULSE 65; TEMP 97.7
--- NOTE | 2019-08-26 13:16 | MM ---
EXAMINATION TYPE: MG stereo VAD BX LT, MG stereo VAD BX RT DATE OF EXAM: 08/26/2019 COMPARISON: Diagnostic mammogram dated 07/03/2019 CLINICAL HISTORY: Indeterminate bilateral calcifications for which stereotactic guided biopsy was recommended. TECHNIQUE: Stereotactic guided core biopsy of bilateral breasts. FINDINGS: The procedure of stereotactic guided core biopsy was explained to the patient. Benefits, alternatives, and risks were discussed. An informed consent was then obtained. Preprocedural timeout was performed. Site A (right upper outer quadrant): The shortness pathway for biopsy was chosen. Shortness pathway was CC from above approach. I performed the localization, then surgeon, Dr. Jean Constantino performed the remainder of the procedure. A vacuum assisted biopsy gun was used to obtain multiple core samples. Site B (left central outer breast): The shortness pathway for biopsy was chosen. Shortness pathway was CC from below approach. I performed the localization, then surgeon, Dr. Jean Constantino performed the remainder of the procedure. A vacuum assisted biopsy gun was used to obtain multiple core samples. The patient tolerated the procedure well. The patient did develop a left breast hematoma. This was subsequently assessed with ultrasound. The patient was kept in the radiology department for short stay after the procedure and then discharged home in stable condition. Targeted calcifications are identified in specimen mammograms bilaterally. Post biopsy mammogram shows the biopsy markers to appear in satisfactory position relative to the targeted area of concern on the preprocedure images. IMPRESSION: SUCCESSFUL, UNCOMPLICATED STEREOTACTIC GUIDED CORE BIOPSY OF BILATERAL GROUPS OF CALCIFICATIONS, FULL PATHOLOGY RESULTS TO FOLLOW. Pathology Results: Benign A. RIGHT BREAST, STEREOTACTIC CORE BIOPSY: Calcified fat necrosis with scar and chronic inflammation, negative for malignancy. B. LEFT BREAST, STEREOTACTIC CORE BIOPSY: Calcified fat necrosis with scar and chronic inflammation, negative for malignancy. Recommendation Follow up mammogram of both breasts in 6 months. MTDD
--- NOTE | 2019-08-26 13:33 | USB ---
Reason for exam: clinical finding. History: Benign excisional biopsy of the left breast, December 2018. Benign MG stereo VAD BX addl RT of the right breast, December 10, 2018. Benign MG stereo VAD BX RT of the right breast, December 10, 2018. Benign US biopsy breast VAD RT of the right breast, November 29, 2018. US Breast Limited LT Left limited breast ultrasound including focal area of concern, retroareolar and axilla demonstrates a 5.8cm hematoma at 3 o'clock. These results were verbally communicated with the patient and result sheet given to the patient on 08/26/19. ASSESSMENT: Benign, BI-RAD 2 RECOMMENDATION: Clinical management of the left breast.
== END ==
LOC: RADMAMWWP 06:57
PROVIDERS: ATTEND Surgery
DX: N64.1 Fat necrosis of breast (principal); R92.1 Mammographic calcification found on diagnostic imaging of breast; L90.5 Scar conditions and fibrosis of skin; Z88.5 Allergy status to narcotic agent
CPT/HCPCS: 88305; 19081; 19082; 76642; A4648; J2001

== ENCOUNTER → 2019-09-01 | Outpatient (CLI) | payer OTHER ==
[2019-09-01 13:00] VITALS: BP 131/89; PULSE 72; RESP 18; TEMP 98
--- NOTE | 2019-09-01 13:03 | P.PN ---
Subjective Progress Note Date: 09/01/19 Principal diagnosis: bilateral stero biopsy results Sheela is a 44 miguel old white female status post a bilateral core biopsy fo the breast. Both sides were calcified fat necrosis with scar and chronic iflammation, negative for malignancy. Post procedure the patient developed a h ematoma and echymosis of the left breast. No changes of concern in the ight breast. No fever or chills. Objective - Constitutional General appearance: Present: obese - EENT Eyes: Present: EOMI ENT: Present: hearing grossly normal - Neck Neck: Present: normal ROM - Respiratory Respiratory: bilateral: CTA - Cardiovascular Rhythm: regular Heart sounds: normal: S1, S2 - Musculoskeletal Musculoskeletal: Present: gait normal - Psychiatric Psychiatric: Present: A&O x's 3, appropriate affect, intact judgment & insight - Additional findings Additional findings: right breast biopsy site clean and dry no evidence of infection, no hemtoma left breast site clean and dry, no evidence of infection echymosis, hematoma about 5 by 5 cm Assessment and Plan Assessment: Impression: 1. bilateral breast biopsies, benign 2. left breast hematoma and echymosis resolving Plan: 1. bilateral mammogram and appt in 6 months CC: DR. Harrington about 15 minutes 50% spent in planning and counselling Time with Patient: Less than 30
== END | disposition home or self-care (01) ==
LOC: WWCWWP 12:49
PROVIDERS: ATTEND Surgery
DX: Z53.9 Procedure and treatment not carried out, unspecified reason (principal)

== ENCOUNTER → 2020-02-06 | Outpatient (CLI) | payer OTHER ==
--- NOTE | 2020-02-07 07:54 | MM ---
Reason for exam: follow-up at short interval from prior study. Last mammogram was performed 7 months ago. History: Benign MG stereo VAD BX addl LT of the left breast, August 26, 2019. Benign MG stereo VAD BX RT of the right breast, August 26, 2019. Benign excisional biopsy of the left breast, December 2018. Benign MG stereo VAD BX addl RT of the right breast, December 10, 2018. Benign MG stereo VAD BX RT of the right breast, December 10, 2018. Benign US biopsy breast VAD RT of the right breast, November 29, 2018. Physical Findings: Nurse Summary: 1 x 1.5cm nodule in the left breast at 3 o'clock (nurse ts). MG 3D Diag Mammo W/Cad DIANA Bilateral CC and MLO view(s) were taken. Prior study comparison: July 04, 2019, bilateral MG 3d diag mammo w/cad DIANA. November 29, 2018, right breast MG diagnostic mammo RT wo CAD. The breast tissue is heterogeneously dense. This may lower the sensitivity of mammography. Benign appearing stable calcifications in bilateral breasts. Previous mammotome biopsy in the right and left breast. These results were verbally communicated with the patient and result sheet given to the patient on 02/06/20. ASSESSMENT: Incomplete: need additional imaging evaluation, BI-RAD 0 RECOMMENDATION: Ultrasound of the left breast. Manage patient on a clinical basis.
--- NOTE | 2020-02-07 07:56 | USB ---
Reason for exam: additional evaluation requested from abnormal screening. History: Benign MG stereo VAD BX addl LT of the left breast, August 26, 2019. Benign MG stereo VAD BX RT of the right breast, August 26, 2019. Benign excisional biopsy of the left breast, December 2018. Benign MG stereo VAD BX addl RT of the right breast, December 10, 2018. Benign MG stereo VAD BX RT of the right breast, December 10, 2018. Benign US biopsy breast VAD RT of the right breast, November 29, 2018. US Breast Limited LT Left limited breast ultrasound including focal area of concern, retroareolar and axilla demonstrates a 4 x 5 x 4mm oval, cystic lesion at 12 o'clock, a 7 x 6 x 7mm oval, cystic lesion at 1 o'clock and a 25 x 20 x 22mm hypoechoic lesion at 3 o'clock BB, probable scar/resolving hematoma. These results were verbally communicated with the patient and result sheet given to the patient on 02/06/20. ASSESSMENT: Probably benign, BI-RAD 3 RECOMMENDATION: Ultrasound of the left breast in 3 months. Manage patient on a clinical basis.
== END | disposition home or self-care (01) ==
LOC: RADMAMWWP 13:39
PROVIDERS: ATTEND Surgery
DX: R92.8 Other abnormal and inconclusive findings on diagnostic imaging of breast (principal); Z98.82 Breast implant status
CPT/HCPCS: 77066; 76642; G0279; 77062

== ENCOUNTER → 2021-08-12 | Outpatient (CLI) | payer OTHER ==
[2021-08-12 22:34] LABS: Basophils # (A) 0.07 X 10*3/uL (0.00-0.10); Basophils % (A) 0.9 %; Eosinophils # (A) 0.25 X 10*3/uL (0.04-0.35); Eosinophils % (A) 3.3 %; HCT 41.9 % (37.2-46.3); HGB 13.7 g/dL (12.0-15.0); Lymphocytes # (A) 2.75 X 10*3/uL (0.90-5.00); Lymphocytes % (A) 35.8 %; MCH 31.1 pg (27.0-32.0); MCHC 32.7 g/dL (32.0-37.0); MCV 95.2 fL (80.0-97.0); Mean Platelet Volume 9.9 fL (9.5-12.2); Monocytes # (A) 0.33 X 10*3/uL (0.20-1.00); Monocytes % (A) 4.3 %; Neutrophils # (A) 4.28 X 10*3/uL (1.80-7.70); Neutrophils % (A) 55.6 %; Platelet Count 341 X 10*3/uL (140-440); RDW 12.1 % (11.5-14.5); WBC 7.69 X 10*3/uL (4.50-10.00)
[2021-08-13 00:33] LABS: ALT 13 U/L (8-44); AST 15 U/L (13-35); African American GFR (CKD) 101.8 (60.0-200.0); Albumin 4.6 g/dL (3.8-4.9); Albumin/Globulin Ratio 1.84 (1.60-3.17); Alkaline Phosphatase 78 U/L (41-126); BUN/Creat Ratio 11.88 Ratio (12.00-20.00); Blood Urea Nitrogen 9.5 mg/dL (9.0-27.0); Calcium 9.3 mg/dL (8.7-10.3); Carbon Dioxide 23.7 mmol/L (21.6-31.8); Chloride 101 mmol/L (96-109); Globulin 2.5 g/dL (1.6-3.3); Glucose 81 mg/dL (70-110); Non-African American GFR(CKD) 87.8 (60.0-200.0); Potassium 4.2 mmol/L (3.5-5.5); Sodium 139 mmol/L (135-145); Total Bilirubin <0.20 mg/dL (0.30-1.20); Total Protein 7.1 g/dL (6.2-8.2)
== END | disposition home or self-care (01) ==
LOC: LABWHC1 13:13
PROVIDERS: ATTEND Psychiatry & Neurology Neurology
DX: M46 Other inflammatory spondylopathies (principal)
CPT/HCPCS: 36415; 80053; 85025

== ENCOUNTER → 2023-11-16 | Outpatient (CLI) | payer MEDICARE, OTHER ==
--- NOTE | 2023-11-16 15:23 | MM ---
Reason for Exam: Screening (asymptomatic). Last mammogram was performed 3 year(s) and 9 month(s) ago. Patient History: Menarche at age 8. First Full-Term at age 20. Hysterectomy at age 36. 12/2018, Benign Excisional Biopsy on the left side. 08/26/2019, Benign Core Biopsy on the right side. 08/26/2019, Benign Core Biopsy on the left side. 12/10/2018, Benign Core Biopsy on the right side. 12/10/2018, Benign Core Biopsy on the right side. 11/29/2018, Benign Core Biopsy on the right side. Risk Values: Alejandra 5 year model risk: 1.6%. NCI Lifetime model risk: 13.3%. Prior Study Comparison: 11/29/2018 Right Diagnostic Mammogram, [facility]. 07/04/2019 Bilateral Diagnostic Mammogram, [facility]. 02/06/2020 Bilateral Diagnostic Mammogram, [facility]. Tissue Density: There are scattered fibroglandular densities. Findings: Analyzed By CAD. The pattern is symmetrical. Multiple increasing benign round calcifications are present. Surgical clips are within the left breast. No significant interval change is evident. No suspicious groups of microcalcifications, spiculated or lobular masses, architectural distortion or other secondary signs of malignancy are mammographically apparent. Overall Assessment: Benign, BI-RAD 2 Management: Screening Mammogram of both breasts in 1 year. A negative mammogram report should not preclude additional follow up of suspicious palpable abnormalities. Patient should continue monthly self breast exam. A clinical breast exam by your physician is recommended on an annual basis and results should be correlated with mammographic findings. Electronically signed and approved by: Lion Jordan D.O. Radiologis
== END | disposition home or self-care (01) ==
LOC: RADMAMWWP 12:03
PROVIDERS: ATTEND Family Medicine
DX: Z12.31 Encounter for screening mammogram for malignant neoplasm of breast (principal)
CPT/HCPCS: 77063; 77067

== ENCOUNTER → 2024-06-07 | Outpatient (CLI) | payer MEDICARE, OTHER ==
--- NOTE | 2024-06-07 21:39 | US ---
EXAMINATION TYPE: US abdomen complete DATE OF EXAM: 06/07/2024 COMPARISON: CT 2012, US 2011 CLINICAL INDICATION: Female, 49 years old with history of M85.9 DISORDER OF BONE DENSITY AND STRUCTUR E; Abdomen pain TECHNIQUE: Multiple sonographic images of the abdomen are obtained. FINDINGS: EXAM MEASUREMENTS: Liver Length: 13.1 cm CBD: 0.6 cm Spleen: 10.4 cm Right Kidney: 10.9 x 4.5 x 4.2 cm Left Kidney: 9.9 x 5.1 x 5.1 cm Pancreas: visualized portions wnl, limited by overlying midline bowel gas Liver: scanned intercostally, attenuating, course echotexture patible with mild fatty degeneration o f the liver. Gallbladder: surgically absent Evidence for sonographic Fish's sign: no CBD: wnll Spleen: wnl Right Kidney: wnl Left Kidney: wnl Upper IVC: wnl Abd Aorta: wnl IMPRESSION: 1. Mild fatty infiltration of the liver. [facility], , 06/07/2024 9:37 PM
== END | disposition home or self-care (01) ==
LOC: RADUSWWP 09:26
PROVIDERS: ATTEND Family Medicine
DX: R10.13 Epigastric pain
CPT/HCPCS: 76700

== ENCOUNTER 2025-03-03 07:13 | Emergency (ER) | payer MEDICARE, OTHER ==
[2025-03-03 07:52] VITALS: TEMP 98.3
[2025-03-03] MEDS: LIDOCAINE 4% PATCH TOPICAL ONE (08:22)
[2025-03-03] MEDS: KETOROLAC 15 MG/ML 1 ML VIAL IVP STA (08:24)
[2025-03-03] MEDS: MORPHINE SULFATE 4 MG/ML SYRINGE IVP STA ×2 (08:24→10:40)
[2025-03-03] MEDS: dexAMETHasone 4 MG TAB PO STA (08:25)
--- NOTE | 2025-03-03 08:37 | CT ---
EXAMINATION TYPE: CT lumbar spine wo con DATE OF EXAM: 03/03/2025 8:27 AM COMPARISON: None. CLINICAL INDICATION: Female, 49 years old with history of right radiculopathy. hx of SI joint fusion, Right radiculopathy, history of SI joint fusion, pain TECHNIQUE: CT of the lumbar spine is performed on a spiral scan at 3 mm thick sections. Reconstructed images are performed in the coronal and sagittal planes. Contrast used: mL of , (none if empty) Oral contrast used: (none if empty) CT DLP: 1242.6 mGycm, Automated exposure control for dose reduction was used. FINDINGS: Stimulator leads enter T12-L1 level. Vacuum joint space is present. The sacroiliac joints v isualized T12-L1: No focal disc herniation or significant disc bulge is evident. No spinal canal stenosis or neural foraminal stenosis is present. L1-L2: No focal disc herniation or significant disc bulge is evident. No spinal canal stenosis or n eural foraminal stenosis is present L2-L3: No focal disc herniation or significant disc bulge is evident. No spinal canal stenosis or n eural foraminal stenosis is present L3-L4: No focal disc herniation or significant disc bulge is evident. No spinal canal stenosis or n eural foraminal stenosis is present L4-L5: There is a grade 1 spondylolisthesis involving for internal 5. Disc uncovering is present with mild anterior thecal sac compression. Marked facet hypertrophy is present. Some spinal canal stenosi s is likely present. Neural foramen are patent. L5-S1: Disc bulge is present with anterior thecal sac contact. No spinal canal stenosis is present IMPRESSION: Grade 1 spondylolisthesis L4-5 with disc and covering and marked facet hypertrophy are present [facility], , 03/03/2025 8:34 AM
--- NOTE | 2025-03-03 09:14 | CT ---
EXAMINATION TYPE: CT pelvis wo con DATE OF EXAM: 03/03/2025 8:27 AM COMPARISON: None. CLINICAL INDICATION: Female, 49 years old with history of right radiculopathy. hx of SI joint fusion, Right radiculopathy, history of SI joint fusion TECHNIQUE: Axial images were obtained from above the iliac crests to the pubic rami in the axial plan e at 5 mm thick sections. Reconstructed images are reviewed on the computer in the coronal plane. CONTRAST: mL of . Study performed DLP: 534.5 mGycm, Automated exposure control for dose reduction was used. FINDINGS: Limited CT sections are obtained the lung bases. The lung bases are clear. CT PELVIS: Loops of bowel within the lower abdomen and pelvis are normal. This study is without oral contras t imaging bowel evaluation Appendix: Not identified Urinary bladder: Normal. Genitourinary structures: Uterus appears normal. Adnexa are unremarkable. Surgical clips within the p tori. Osseous structures: There may be some sacroiliac joint degenerative change more on the right facet de generative changes are within the lower lumbar spine. Grade 1 spondylolisthesis of L4 anteriorly on L 5 with disc uncovering and spinal canal stenosis is present. IMPRESSION: 1. Spinal canal stenosis L4-5 secondary to disc uncovering from spondylolisthesis and facet hypertro phy. [facility], , 03/03/2025 9:11 AM
--- NOTE | 2025-03-03 09:53 | ED ---
General Adult HPI - General Chief complaint: Back Pain/Injury Stated complaint: Pain on left side Time Seen by Provider: 03/03/25 07:30 Source: patient, RN notes reviewed, old records reviewed Mode of arrival: ambulatory Limitations: no limitations - History of Present Illness Initial comments: Patient is a 49-year-old female who presents emergency department complaining of acute on chronic back pain. Does have a history of a spinal stimulator, SI joint fusion, and follows up with Dr. Small but has an appointment with her new transportation maintenance specialist Dr. Cueto next week. Has been having worsening acute on chronic back pain. Nothing seems to be helping at home. States has been ongoing for weeks. Denies any urinary or bowel incontinence or retention. Denies any lower extremity paralysis. Denies any saddle paresthesias. Presents for further evaluation at this time. - Related Data Home Medications Medication Instructions Recorded Confirmed Ibuprofen [Motrin] 800 mg PO TID PRN 09/16/17 09/01/19 Levothyroxine Sodium [Synthroid] 100 mcg PO HS 09/16/17 09/01/19 Spironolactone 50 mg PO BID 09/16/17 09/01/19 metFORMIN HCL ER [Glucophage Xr] 1,000 mg PO BID 09/16/17 09/01/19 Cholecalciferol (Vitamin D3) 5,000 unit PO HS 10/08/18 09/01/19 [Vitamin D3] ALPRAZolam [Xanax] 0.5 mg PO DAILY PRN 12/23/18 09/01/19 buPROPion XL [Wellbutrin Xl] 75 mg PO BID 12/23/18 09/01/19 Previous Rx's Medication Instructions Recorded methocarbamoL [Robaxin-750] 750 mg PO QID PRN 5 Days #20 tab 03/03/25 Allergies Allergy/AdvReac Type Severity Reaction Status Date / Time hydromorphone [From Dilaudid] Allergy Unknown Verified 03/03/25 07:27 Review of Systems ROS Statement: Those systems with pertinent positive or pertinent negative responses have been documented in the HPI. Review of Systems: CONST: Denies fever EYES: Denies blurry vision ENT: Denies nasal congestion C/V: Denies Chest pain RESP: Denies shortness of breath GI: Denies abdominal pain : Denies dysuria SKIN: Denies rash. MSK: Endorses back pain NEURO: Denies headache ROS Other: All systems not noted in ROS Statement are negative. Past Medical History Past Medical History: Diabetes Mellitus, Thyroid Disorder Additional Past Medical History / Comment(s): pt states takes metformin for ho rmonal imbalance. chronic back pain/bulging discs History of Any Multi-Drug Resistant Organisms: None Reported Past Surgical History: Cholecystectomy, Hysterectomy, Tonsillectomy Additional Past Surgical History / Comment(s): left breast biopsy 2019 Past Anesthesia/Blood Transfusion Reactions: Postoperative Nausea & Vomiting (PONV) Past Psychological History: Depression Smoking Status: Former smoker Past Alcohol Use History: None Reported Past Drug Use History: None Reported - Past Family History Father Family Medical History: No Reported History Daughter(s) Family Medical History: Cancer Additional Family Medical History / Comment(s): glioblastoma General Exam - General Exam Comments Initial Comments: General: Appears in mild to moderate distress secondary to back pain. HEAD: Normal with no signs of head trauma. EYES: EOMI. ENT: Hearing grossly intact. RESPIRATORY: No respiratory distress. C/V: Regular rate and rhythm. ABD: Abdomen is nondistended. EXT: No obvious deformity.. Tenderness to palpation mildly in the lumbar spine region midline but mostly in the paraspinal muscles on the right. No obvious deformity. Pelvis stable. No pelvis tenderness to palpation. SKIN: No rashes or lesions observed on exposed skin. NEURO: Alert and oriented. No focal deficits. Limitations: no limitations Course Vital Signs 03/03/25 07:24 Temperature 98.3 F Pulse Rate 87 Respiratory 22 Rate Blood Pressure 166/93 O2 Sat by Pulse 96 Oximetry Medical Decision Making - Medical Decision Making Was pt. sent in by a medical professional or institution (, PA, SUMMER LAW CLERK, urgent care, hospital, or assisted...) When possible be specific @ -No Did you speak to anyone other than the patient for history (EMS, parent, family, police, friend...)? What history was obtained from this source @ -No Did you review nursing and triage notes (agree or disagree)? Why? @ -I reviewed and agree with nursing and triage notes Were old charts reviewed (outside hosp., previous admission, EMS record, old EKG, old radiological studies, urgent care reports/EKG's, assisted records)? Report findings @ -No old charts were reviewed Differential Diagnosis (chest pain, altered mental status, abdominal pain women, abdominal pain men, vaginal bleeding, weakness, fever, dyspnea, syncope, headache, dizziness, GI bleed, back pain, seizure, CVA, palpatations, mental health, musculoskeletal)? @ -Differential Back Pain: Strain, zoster, cauda equina syndrome, epidural abscess, vertebral osteomyelitis, discitis, fracture, subluxation, disc herniation, DJD, spinal stenosis, dissection, AAA, pancreatitis, peptic ulcer disease, pyelonephritis, kidney stone, this is not meant to be an all-inclusive list. EKG interpreted by me (3pts min.). @ -None done X-rays interpreted by me (1pt min.). @ -None done CT interpreted by me (1pt min.). @ -CT imaging revealed spinal canal stenosis at L4-L5 with some disc uncovering U/S interpreted by me (1pt. min.). @ -None done What testing was considered but not performed or refused? (CT, X-rays, U/S, la bs)? Why? @ -None What meds were considered but not given or refused? Why? @ -None Did you discuss the management of the patient with other professionals (professionals i.e. , PA, SUMMER LAW CLERK, lab, RT, psych nurse, social insurance specialist, machine ii engraver, teacher, digital controls technical officer, director of casework department)? Give summary @ -No Was smoking cessation discussed for >3mins.? @ -No Was critical care preformed (if so, how long)? @ -No Were there social determinants of health that impacted care today? How? (Homelessness, low income, unemployed, alcoholism, drug addiction, transportation, low edu. Level, literacy, decrease access to med. care, longterm, rehab)? @ -No Was there de-escalation of care discussed even if they declined (Discuss DNR or withdrawal of care, Hospice)? DNR status @ -No What co-morbidities impacted this encounter? (DM, HTN, Smoking, COPD, CAD, Cancer, CVA, ARF, Chemo, Hep., AIDS, mental health diagnosis, sleep apnea, morbid obesity)? @ -None Was patient admitted / discharged? Hospital course, mention meds given and route, prescriptions, significant lab abnormalities, going to OR and other pertinent info. @ -Based on patient's presentation physical exam, presents emergency department complaining of acute on chronic back pain. Has been worse over the last 3 weeks. Has been following up with a pain specialist but is due to follow-up with a new transfer specialist next week. Presents due to intractable pain. No red flag symptoms to suggest cauda equina syndrome. Patient will be administered IV analgesia medications and we will obtain CT imaging. She was in agreement this plan. Vitals are within acceptable limits. Imaging shows what appears to be disc uncovering at L4-L5 but no obvious acute issue. I updated the patient. She expressed understanding. Discussed she should follow-up with her PCP as well as her orthopedic surgeon next week. Was in agreement with this plan. Discharged home with a CT imaging disc. I will provide the patient with a prescription for Robaxin. I instructed the patient to follow up with their PCP in the next 1-3 days. I provided contact information for follow up with Dr. Cueto. I explained that the patient should return to the emergency department if they experience any worsening symptoms. Strict return precautions were discussed with the patient. The patient expressed understanding of these instructions. I answered all questions that the patient had. The patient was discharged home in good condition with their prescriptions and follow up information. Undiagnosed new problem with uncertain prognosis? @ -No Drug Therapy requiring intensive monitoring for toxicity (Heparin, Nitro, Insulin, Cardizem)? @ -No Were any procedures done? @ -No Diagnosis/symptom? @ -Back pain Acute, or Chronic, or Acute on Chronic? @ -Acute on chronic Uncomplicated (without systemic symptoms) or Complicated (systemic symptoms)? @ -Uncomplicated Side effects of treatment? @ -No Exacerbation, Progression, or Severe Exacerbation? @ -No Poses a threat to life or bodily function? How? (Chest pain, [place], [place], pneumonia, PE, COPD, DKA, ARF, appy, cholecystitis, CVA, Diverticulitis, Homicidal, Suicidal, threat to staff... and all critical care pts) @ -Unlikely at this time Disposition Clinical Impression: Back pain Disposition: HOME SELF-CARE Condition: Good Instructions (If sedation given, give patient instructions): Acute Low Back Pain (ED) Prescriptions: methocarbamoL [Robaxin-750] 750 mg PO QID PRN 5 Days #20 tab PRN Reason: Pain Is patient prescribed a controlled substance at d/c from ED?: No Referrals: Colton Harrington MD [Primary Care Provider] - 1-2 days Pat Cueto DO [Doctor of Osteopathic Medicine] - 1-2 days Time of Disposition: 09:54
[2025-03-03 10:32] VITALS: BP 154/75; PULSE 80; RESP 20
== END 2025-03-03 10:48 | disposition home or self-care (01) ==
LOC: EC 07:13
DX: M54.9 Dorsalgia, unspecified (principal); G89.29 Other chronic pain; Z87.891 Personal history of nicotine dependence; Z88.5 Allergy status to narcotic agent
CPT/HCPCS: 72192; 72131; 99284; 96374; 96375; 96376; J8540; J2270; J1885